=== PATIENT | female | born 1950 | race Caucasian/White ===

== ENCOUNTER 2021-09-29 21:20 | Emergency (ER) | payer MEDICARE ==
[~2021-09-29] VITALS: Ht 160 cm; Wt 96.2 kg
[2021-09-29] MEDS ORDERED: SODIUM CHLORIDE 0.9% 1000ML 1,000 ML IV SCH (22:00)
[2021-09-29] MEDS ORDERED: ONDANSETRON HCL INJ 2MG/ML 2ML 2 MG/ML VIAL IV STA (22:00)
[2021-09-29] MEDS ORDERED: SODIUM CHLORIDE 0.9% 1000ML 1,000 ML ONE (22:04)
[2021-09-29] MEDS ORDERED: ONDANSETRON HCL INJ 2MG/ML 2ML 2 MG/ML VIAL ONE (22:04)
[2021-09-29] MEDS ORDERED: ONDANSETRON ODT4 MG PO (22:44)
[2021-09-29 23:16] VITALS: BP 155/82
== END 2021-09-29 23:16 | disposition home or self-care (01) ==
LOC: FSED 21:40
DX: R11.2 Nausea with vomiting, unspecified (principal); R19.7 Diarrhea, unspecified; E11.40 Type 2 diabetes mellitus with diabetic neuropathy, unspecified; I10 Essential (primary) hypertension; M10.9 Gout, unspecified
CPT/HCPCS: 74018; 80053; 85025; 93005; 96374; 99283; J2405; J7030